=== PATIENT | female | born 1950 | race Caucasian/White ===

== ENCOUNTER → 2017-03-27 | Outpatient (CLI) | payer MEDICARE, BC | LOC: MC.RAD 10:20 | DX: Z12.31 Encounter for screening mammogram for malignant neoplasm of breast (principal) ==

== ENCOUNTER 2018-10-19 14:45 | Outpatient (CLI) | payer MEDICARE, BC ==
[~2018-10-19] VITALS: Ht 165.1 cm; Wt 96.7 kg
[2018-10-19] MEDS ORDERED: AMARYL4 MG PO (14:54)
[2018-10-19] MEDS ORDERED: JANUMXR1000-50 PO (14:55)
[2018-10-19] MEDS ORDERED: BENICAR40 MG PO (14:55)
[2018-10-19] MEDS ORDERED: NORVASC 10MG10 MG PO (14:56)
[2018-10-19] MEDS ORDERED: ENBREL50 MG/ML SQ (14:56)
[2018-10-19 14:57] VITALS: BP 135/50; PULSE 94; TEMP 98.4
== END 2018-10-19 15:23 | disposition home or self-care (01) ==
LOC: EUO 14:45
DX: M81.0 Age-related osteoporosis without current pathological fracture (principal)
CPT/HCPCS: J0897

== ENCOUNTER 2019-02-25 09:24 | Day surgery (SDC) | payer MEDICARE, BC ==
[~2019-02-25] VITALS: Ht 165.1 cm; Wt 95.3 kg
[~2019-02-25 09:24] MED LIST: AMARYL4 MG PO; BENICAR40 MG PO; ENBREL50 MG/ML SQ; JANUMXR1000-50 PO; NORVASC 10MG10 MG PO
[2019-02-25 09:51] VITALS: BP 153/72; PULSE 86; TEMP 98.1
[2019-02-25] MEDS ORDERED: AMARYL4 MG PO (10:00)
[2019-02-25] MEDS ORDERED: JANUMET 1000 MG1 TA1 PO (10:00)
[2019-02-25] MEDS ORDERED: CALCIUM 600 PLU1 TAB PO (10:03)
[2019-02-25 12:40] VITALS: BP 105/58; PULSE 83; TEMP 97.5
--- NOTE | 2019-02-25 12:50 | NUR ---
PT RETURNS ON CART FROM PROCEDURE ROOM TO BAY 4. PT WALKS TO RECLINER WITH ASSITANCE. PT DENIES C/O. VITAL SIGNS STABLE. CALL LIGHT WITHIN REACH. PT AT CHAIR SIDE.
[2019-02-25 12:55] VITALS: BP 116/64; PULSE 80
--- NOTE | 2019-02-25 12:55 | NUR ---
PT CONTINUES TO DENY C/O. VITAL SIGNS STABLE. PT DISCHARGE INSTRUCTIONS REVIEWED WITH PT AND PT . BOTH VERBALIZES UNDERSTANDING. WHEELCHAIR RIDE TO CAR WITH NURSE. PT TO HOME WITH PT .
== END 2019-02-25 13:00 | disposition home or self-care (01) ==
LOC: SDCO 09:24
DX: Z12.11 Encounter for screening for malignant neoplasm of colon (principal); D12.4 Benign neoplasm of descending colon; E11.9 Type 2 diabetes mellitus without complications; E78.2 Mixed hyperlipidemia; Z79.4 Long term (current) use of insulin; E66.01 Morbid (severe) obesity due to excess calories; Z68.35 Body mass index [BMI] 35.0-35.9, adult; L40.53 Psoriatic spondylitis; K74.3 Primary biliary cirrhosis; L73.2 Hidradenitis suppurativa; F17.291 Nicotine dependence, other tobacco product, in remission; L03.211 Cellulitis of face; I10 Essential (primary) hypertension; L40.9 Psoriasis, unspecified; Z90.49 Acquired absence of other specified parts of digestive tract; Z88.6 Allergy status to analgesic agent; Z88.1 Allergy status to other antibiotic agents; M19.90 Unspecified osteoarthritis, unspecified site
CPT/HCPCS: J2704; J7030

== ENCOUNTER 2019-04-27 10:51 | Outpatient (CLI) | payer MEDICARE, BC ==
[~2019-04-27] VITALS: Ht 165.1 cm; Wt 100.0 kg
[~2019-04-27 10:51] MED LIST changes: +CALCIUM 600 PLU1 TAB PO; +JANUMET 1000 MG1 TA1 PO
[2019-04-27 11:03] VITALS: BP 123/58; PULSE 82; TEMP 98.6
== END 2019-04-27 15:00 | disposition home or self-care (01) ==
LOC: EUO 10:51
DX: M81.0 Age-related osteoporosis without current pathological fracture (principal)
CPT/HCPCS: J0897

== ENCOUNTER → 2020-02-28 | Outpatient (CLI) | payer MEDICARE, BC | LOC: MC.RAD 13:33 | DX: Z12.31 Encounter for screening mammogram for malignant neoplasm of breast (principal); R92.0 Mammographic microcalcification found on diagnostic imaging of breast ==

== ENCOUNTER → 2020-03-01 | Outpatient (CLI) | payer MEDICARE, BC | LOC: MC.RAD 09:24 | DX: R92.0 Mammographic microcalcification found on diagnostic imaging of breast (principal) ==

== ENCOUNTER 2020-05-01 14:29 | Outpatient (CLI) | payer MEDICARE, BC ==
[~2020-05-01] VITALS: Ht 165.1 cm; Wt 95.0 kg
[2020-05-01 14:53] VITALS: BP 136/71; PULSE 84; TEMP 98.1
== END 2020-05-01 15:06 | disposition home or self-care (01) ==
LOC: EUO 14:29
DX: M81.0 Age-related osteoporosis without current pathological fracture (principal)
CPT/HCPCS: J0897

== ENCOUNTER 2020-11-02 13:41 | Outpatient (CLI) | payer MEDICARE, BC ==
[~2020-11-02] VITALS: Ht 165.1 cm; Wt 91.5 kg
[2020-11-02 14:25] VITALS: BP 128/80; PULSE 76; TEMP 98.2
== END 2020-11-02 14:26 ==
LOC: EUO 13:41
DX: M81.0 Age-related osteoporosis without current pathological fracture (principal)
CPT/HCPCS: J0897

== ENCOUNTER → 2021-04-25 | Outpatient (CLI) | payer MEDICARE, BC | LOC: MC.RAD 10:07 | DX: Z12.31 Encounter for screening mammogram for malignant neoplasm of breast (principal) ==

== ENCOUNTER 2021-05-28 14:29 | Outpatient (CLI) | payer MEDICARE, BC ==
[~2021-05-28] VITALS: Ht 165.1 cm; Wt 78.2 kg
[2021-05-28 15:00] VITALS: BP 135/69; PULSE 79; TEMP 98.3
== END 2021-05-28 15:12 | disposition home or self-care (01) ==
LOC: EUO 14:29
DX: M81.0 Age-related osteoporosis without current pathological fracture (principal)
CPT/HCPCS: J0897